=== PATIENT | male | born 1965 | race Caucasian/White ===

== ENCOUNTER 2021-02-23 15:47 | Inpatient (IN) | payer OTHER ==
[~2021-02-23] VITALS: Ht 177.8 cm; Wt 127.0 kg
[2021-02-23 15:57] VITALS: BP 118/77
[2021-02-23 18:30] LABS: ABSOLUTE BASOPHILS 0.1 thou/uL (0.0-0.2); ABSOLUTE EOSINOPHILS 0.3 thou/uL (0.0-0.7); ABSOLUTE LYMPHOCYTES 1.9 thou/uL (0.8-5.3); ABSOLUTE NEUTROPHILS 8.9 thou/uL (1.6-8.1); BASOPHILS 0.7 %; EOSINOPHILS 2.5 %; HEMATOCRIT 41.5 % (42.0-52.0); HEMOGLOBIN 13.9 gm/dL (14.0-18.0); LYMPHOCYTES 15.9 %; MCH 29.2 pg (26.0-34.0); MCHC 33.6 g/dL (28.0-37.0); MCV 86.9 fL (80.0-100.0); MONOCYTES 8.3 %; MPV 7.1 fl. (7.2-11.1); NUCLEATED RBCS 0 /100WBC; PLATELET COUNT* 329 thou/uL (150-400); POLYS 72.6 %; RBC 4.77 mil/uL (4.50-6.00); RDW-CV 13.4 % (10.5-14.5); WBC 12.3 thou/uL (4.0-11.0)
[2021-02-23 18:39] LABS: POTASSIUM 3.7 mmol/L (3.5-5.1)
[2021-02-23 18:44] LABS: TOTAL BILIRUBIN 0.6 mg/dL (<0.1-1.0); TOTAL PROTEIN 8.3 g/dL (6.4-8.2)
[2021-02-23 23:11] VITALS: BP 157/69
[2021-02-24 09:00] VITALS: BP 135/66
--- NOTE | 2021-02-24 11:37 | NUR ---
WOUND NURSE: JODIE SEEN FOR ASSESSMENT PERTAINING TO LESIONS ON HANDS AND FEET. PATIENT REPORTING HE HAS BEEN TO [facility] AND TO [facility] [place] AND WAS TOLD HE HAS SEVERE ATHLETES FOOT ON BOTH FEET. PATIENT STATES HE CAME TO [facility] ([place] BECAUSE HE WANTED ANOTHER OPINION HE FEELS LESIONS ARE WORSENING. PATIENT ALSO REPORTS HE WORKS IN [employer] AND ADMITS TO GETTING IT ON HIS HANDS AND FEET. STATES HE WEARS RUBBER BOOTS AND THE CONCRETE GETS INSIDE THEM WHEN HE'S WORKING. PRESENTS WITH INFLAMED, ROUGH, PEELING, CHAFFED, SKIN WITH RED, RASH PRESENT. REQUESTED PODIATRY CONSULT AND DR. KHALIL CONTACTED AND AGREES TO SEE THE PATIENT. PATIENT MAY BENEFIT WITH DERMATOLOGY APPT AFTER DISCHARGE FROM ACUTE CARE.
[2021-02-24 16:00] VITALS: BP 168/80
--- NOTE | 2021-02-24 16:12 | NUR ---
CM ASSESSMENT: PT A&O, INDEPENDENT WITH ADL'S, ACTIVE AND WORKS OUTSIDE THE HOME. PT USES 0 DME. PT HAS 0 HX OF HH. PT IS UNINSURED AND THIS WILL BE A BARRIER TO D/C PLANNING IF PT NEEDS ANY F/U SERVICES OR MEDICAITONS AT D/C. PT WAS ASSESSED BY MED ASSIST AND PT DOES NOT QUALIFY FOR MEDICAID. CM PROVIDED PT WITH COMMUNITY RESOURCE INFO FOR THE [facility] AND FOR [facility]. CM WILL REMAIN AVAILABLE TO ASSIST AND FOLLOW NEEDED.
--- NOTE | 2021-02-24 18:42 | NUR ---
PATIENT HAS REMAINED A&OX4, PLEASANT AND COOPERATIVE WITH CARES THIS SHIFT. NO COMPLAINTS OF PAIN. PATIENT SEEN/TREATED BY WOUND CARE NURSE AND HEALTHCARE ADMINISTRATIVE ASSISTANT. MEDICATIONS ADMINISTERED ORDERD. CALL LIGHT AND FREQUENTLY USED ITEMS WITHIN REACH.
[2021-02-24 20:00] VITALS: BP 166/78
[2021-02-25] VITALS: BP 141/61
[2021-02-25 04:00] VITALS: BP 157/79
[2021-02-25 05:10] LABS: HEMATOCRIT 38.6 % (42.0-52.0); HEMOGLOBIN 12.9 gm/dL (14.0-18.0); MCH 28.8 pg (26.0-34.0); MCHC 33.5 g/dL (28.0-37.0); MPV 7.3 fl. (7.2-11.1); RBC 4.48 mil/uL (4.50-6.00); RDW-CV 13.1 % (10.5-14.5)
[2021-02-25 05:18] LABS: CALCIUM 8.5 mg/dL (8.5-10.1)
[2021-02-25 08:00] VITALS: BP 154/71
[2021-02-25] MEDS ORDERED: BACTRIM DS TAB1 EAC1 PO (16:03)
[2021-02-25] MEDS ORDERED: TERBINAFINE HC250 MG PO (16:04)
[2021-02-25] MEDS ORDERED: UREA198 GM TOP (16:06)
[2021-02-25 18:37] VITALS: BP 154/71
--- NOTE | 2021-02-25 19:16 | NUR ---
Patient IV taken out, given d/c papers and scripts. Verbalizes understanding of d/c instructions.
== END 2021-02-25 18:50 | disposition home or self-care (01) | DRG 603 ==
LOC: M.ERS 15:47 → M.TBA-ER 18:16 → M.2W 23:20
PROVIDERS: Internal Medicine; Physician Assistant; ADMIT Internal Medicine; ATTEND Internal Medicine
DX: L03.116 Cellulitis of left lower limb (principal); L03.115 Cellulitis of right lower limb; S61.402A Unspecified open wound of left hand, initial encounter; S61.401A Unspecified open wound of right hand, initial encounter; Z60.2 Problems related to living alone; Z20.822 Contact with and (suspected) exposure to COVID-19; Z79.899 Other long term (current) drug therapy; X58.XXXA Exposure to other specified factors, initial encounter; Y93.89 Activity, other specified; Y92.89 Other specified places as the place of occurrence of the external cause; Y99.8 Other external cause status